=== PATIENT | female | born 1980 | race African-American/Black ===

== ENCOUNTER 2016-11-01 17:57 | Emergency (ER) | payer SELFPAY ==
[~2016-11-01] VITALS: Ht 165.1 cm; Wt 66.0 kg
[2016-11-01 18:22] VITALS: BP 117/79
[2016-11-01] MEDS ORDERED: vitamins (18:27)
== END 2016-11-01 21:00 | disposition left against medical advice (07) ==
LOC: ER 20:55
DX: Z53.21 Procedure and treatment not carried out due to patient leaving prior to being seen by health care provider (principal); F41.9 Anxiety disorder, unspecified